=== PATIENT | female | born 1995 | race American Indian/Alaskan Native ===

== ENCOUNTER 2019-04-16 13:21 | Emergency (ER) | payer SELFPAY ==
[2019-04-16 13:27] VITALS: BP 130/76
--- NOTE | 2019-04-16 13:28 | Emergency Department Report ---
Blank Doc - Documentation Documentation: 23-year-old female that presents with sore throat. This initial assessment/diagnostic orders/clinical plan/treatment(s) is/are subject to change based on patient's health status, clinical progression and re- assessment by fellow clinical providers in the ED. Further treatment and workup at subsequent clinical providers discretion. Patient/guardians urged not to elope from the ED as their condition may be serious if not clinically assessed and managed. Initial orders include: 1- Patient sent to [facility] for further evaluation and treatment 2- strep swabs
--- NOTE | 2019-04-16 13:58 | Emergency Department Report ---
HPI - General Chief Complaint: Sore Throat Time Seen by Provider: 04/16/19 13:25 - HPI HPI: 23-year-old female presents to the emergency department with a 2-3 day history of a sore throat. She is able to swallow liquids and solids but has pain with doing so. The symptoms have worsened this morning upon waking and she now feels some discomfort in the ears. No fever. No past medical history. No treatment prior to presentation. No PCP. ED Past Medical Hx - Past Medical History Previous Medical History?: No - Surgical History Past Surgical History?: No - Social History Smoking Status: Never Smoker Substance Use Type: Alcohol - Medications Home Medications: Home Medications Medication Instructions Recorded Confirmed Last Taken Type Amoxicillin [Trimox CAP] 500 mg PO Q8H #21 capsule 04/16/19 Unknown Rx ED Review of Systems ROS: Stated complaint: SORE THROAT/DIFFICULTY HEARING Other details as noted in HPI Comment: All other systems reviewed and negative Constitutional: denies: chills, fever Eyes: denies: eye pain ENT: ear pain, throat pain Respiratory: denies: cough, shortness of breath Gastrointestinal: denies: abdominal pain Neurological: denies: headache Physical Exam - Physical Exam Vital Signs: Vital Signs 04/16/19 13:25 Temperature 99.2 F Pulse Rate 89 Respiratory 19 Rate Blood Pressure 130/76 O2 Sat by Pulse 98 Oximetry Physical Exam: GENERAL: The patient is well-developed well-nourished. HENT: Normocephalic. Atraumatic. Patient has moist mucous membranes. Patient has bilateral tonsillar hypertrophy with erythema and bilateral tonsillar exudates. No drooling or trismus. Normal-appearing bilateral external ear canals and tympanic membranes. EYES: Extraocular motions are intact. NECK: Supple. Trachea is midline. CHEST/LUNGS: Clear to auscultation. There is no respiratory distress noted. HEART/CARDIOVASCULAR: Regular. There is no tachycardia. There is no murmur. ABDOMEN: There is no abdominal distention. SKIN: Skin is warm and dry. NEURO: The patient is awake, alert, and oriented. The patient is cooperative. The patient has no focal neurologic deficits. Normal speech. MUSCULOSKELETAL: There is no tenderness or deformity. There is no evidence of acute injury. ED Course Vital Signs 04/16/19 13:25 Temperature 99.2 F Pulse Rate 89 Respiratory 19 Rate Blood Pressure 130/76 O2 Sat by Pulse 98 Oximetry ED Medical Decision Making - Medical Decision Making The patient presents with a sore throat. Vital signs stable including being afebrile. While the patient was negative on rapid strep test, she has tonsillar hypertrophy, erythema and bilateral exudates. She will be treated with some amoxicillin. Patient will return to the emergency Department with any worsening of her symptoms or any acute distress. - Differential Diagnosis strep pharyngitis, viral pharyngitis, mononucleosis Critical Care Time: No Critical care attestation.: If time is entered above; I have spent that time in minutes in the direct care of this critically ill patient, excluding procedure time. ED Disposition Clinical Impression: Strep pharyngitis Disposition: - TO HOME OR SELFCARE Is pt being admited?: No Condition: Stable Instructions: Strep Throat (ED) Additional Instructions: Please follow-up with a primary care physician in the next few days. Return to the emergency Department with any worsening of your symptoms or any acute distress. Take the antibiotics as prescribed. Make sure to consistently wash her hands with soap and warm water. Do not share any food or drink with anyone. Prescriptions: Amoxicillin [Trimox CAP] 500 mg PO Q8H #21 capsule Referrals: JUAN LUIS ORTIZ MD [Staff Physician] - 2-3 Days [facility] [Outside] - 2-3 Days Time of Disposition: 14:33
== END 2019-04-16 14:46 | disposition home or self-care (01) ==
LOC: ED 13:21
DX: J02.0 Streptococcal pharyngitis (principal)
CPT/HCPCS: 87116; 87430

== ENCOUNTER 2019-05-31 01:33 | Emergency (ER) | payer SELFPAY ==
[2019-05-31 02:00] VITALS: BP 126/72
--- NOTE | 2019-05-31 03:22 | Emergency Department Report ---
ED Allergic Reaction HPI - General Chief complaint: Skin Rash Stated complaint: FACIAL RASH Time Seen by Provider: 05/31/19 02:46 Source: patient, family Mode of arrival: Ambulatory Limitations: No Limitations - History of Present Illness Initial Comments: This is a 23-year-old female presenting to the emergency room reporting that she was at work and she broke out into welts all over her body. And realized that her face was swollen. She denies any pain. Denies any respiratory distress, coughing, closed os throat, wheezing or swelling of tongue or lips. She denies any fever, neck pain or chills. Denies any nausea and vomiting. Pain is 0 out of 10 and last menstrual period was 05/11/2019. Patient says she is actually getting better and rash is clearing up but she is still very itchy. She denies previous incidents and also reports that she works in a [employer]. MD Complaint: hives, facial swelling -: During the night (at work on 05/30/2019) Exposure: unknown Symptoms: rash, itching, facial swelling. denies: lip swelling, difficulty swallowing, difficulty breathing, orolingual swelling, hoarseness, syncopy, dizziness, nausea, vomiting, abdominal pain Severity: moderate Treatment Prior to Arrival: other (none) Previous Allergy History: none - Related Data Previous Rx's Medication Instructions Recorded Last Taken Type Amoxicillin [Trimox CAP] 500 mg PO Q8H #21 capsule 04/16/19 Unknown Rx Prednisone [predniSONE 10 mg 10 mg PO .TAPER 6 Days #1 tab.ds.pk 05/31/19 Unknown Rx (6-Day Pack, 21 Tabs)] diphenhydrAMINE [Benadryl CAP] 25 mg PO Q8HR PRN #12 capsule 05/31/19 Unknown Rx Allergies Allergy/AdvReac Type Severity Reaction Status Date / Time No Known Allergies Allergy Unverified 04/16/19 13:23 ED Review of Systems ROS: Stated complaint: FACIAL RASH Other details as noted in HPI Constitutional: denies: chills, fever ENT: other (bilateral facial swelling). denies: ear pain, throat pain, congestion Respiratory: denies: cough, shortness of breath, SOB with exertion, SOB at rest, stridor, wheezing Cardiovascular: denies: chest pain, palpitations, dyspnea on exertion, edema, syncope, paroxysmal nocturnal dyspnea Gastrointestinal: denies: abdominal pain, nausea, vomiting Genitourinary: denies: abnormal menses Musculoskeletal: denies: back pain, joint swelling, arthralgia, myalgia Skin: rash, pruritus Neurological: denies: headache, numbness, paresthesias ED Past Medical Hx - Past Medical History Previous Medical History?: No - Surgical History Past Surgical History?: No - Family History Family history: hypertension - Social History Smoking Status: Light Tobacco Smoker Substance Use Type: None - Medications Home Medications: Home Medications Medication Instructions Recorded Confirmed Last Taken Type Amoxicillin [Trimox CAP] 500 mg PO Q8H #21 capsule 04/16/19 Unknown Rx Prednisone [predniSONE 10 mg 10 mg PO .TAPER 6 Days #1 tab.ds.pk 05/31/19 Unknown Rx (6-Day Pack, 21 Tabs)] diphenhydrAMINE [Benadryl CAP] 25 mg PO Q8HR PRN #12 capsule 05/31/19 Unknown Rx ED Physical Exam - General Limitations: No Limitations General appearance: alert, in no apparent distress - Head Head exam: Present: atraumatic, normocephalic - Eye Eye exam: Present: normal appearance, PERRL, EOMI. Absent: conjunctival injection, nystagmus, periorbital swelling, periorbital tenderness Pupils: Present: normal accommodation - ENT ENT exam: Present: normal exam, normal orophraynx, mucous membranes moist, TM's normal bilaterally, normal external ear exam, other (no facial swelling noted but scattered rash on both sides of face.) - Expanded ENT Exam Expanded Mouth exam: Present: normal external inspection, tongue normal. Absent: drooling, trismus, muffled voice, tongue elevation, laceration Teeth exam: Present: normal inspection Throat exam: Positive: normal inspection - Neck Neck exam: Present: normal inspection, full ROM. Absent: tenderness, lymphadenopathy - Expanded Neck Exam Expanded Neck exam: Absent: tenderness, midline deformity, anterior neck swelling, tracheal deviation - Respiratory Respiratory exam: Present: normal lung sounds bilaterally. Absent: respiratory distress, chest wall tenderness - Cardiovascular Cardiovascular Exam: Present: regular rate, normal rhythm, normal heart sounds - GI/Abdominal GI/Abdominal exam: Present: soft, normal bowel sounds. Absent: distended, tenderness - Extremities Exam Extremities exam: Present: normal inspection, full ROM, normal capillary refill, other (No cce. + 2 pulses in all extremities, no neurovascular compromise). Absent: tenderness, pedal edema, joint swelling - Back Exam Back exam: Present: normal inspection, full ROM, rash noted (urticarial type rash). Absent: tenderness, CVA tenderness (L), muscle spasm, paraspinal tenderness, vertebral tenderness - Neurological Exam Neurological exam: Present: alert, normal gait - Psychiatric Psychiatric exam: Present: normal affect, normal mood - Skin Skin exam: Present: warm, dry, intact, rash, urticaria (sparsely scattered and generalized.) ED Course Vital Signs 05/31/19 01:44 Temperature 98.4 F Pulse Rate 86 Respiratory 14 Rate Blood Pressure 126/72 O2 Sat by Pulse 98 Oximetry - Reevaluation(s) Reevaluation #1: 05/31/19 03:57 Patient ED Medical Decision Making - Medical Decision Making This is a 23-year-old female came from work report that she has generalized rashes dictation. She was given Benadryl 50 mg IM and Decadron 10 mg IM in emergency room and she is stable. Vital signs stable she is afebrile and pain is 0 out of 10. Patient with hives without any anaphylaxis. I discussed with her that if this returned and she is having any difficulty breathing, cough, wheezing, difficulty swallowing, drooling, tongue or lip or facial swelling to return to emergency room [facility] otherwise follow-up with her primary care in 2 days and she voiced understanding. Patient discharged home with prescription for Benadryl and prednisone Dosepak. - Differential Diagnosis anaphylaxis versus urticaria Critical care attestation.: If time is entered above; I have spent that time in minutes in the direct care of this critically ill patient, excluding procedure time. ED Disposition Clinical Impression: Hives, Pruritus Disposition: [id number] TO HOME OR SELFCARE Is pt being admited?: No Does the pt Need Aspirin: No Condition: Stable Instructions: Urticaria (ED), Itchy Skin (ED) Additional Instructions: These follow-up with your primary care physician in 2 days or if you condition worsens return to the emergency room. Take medication as prescribed do not take Benadryl while driving or operating heavy machinery as this will cause drowsiness Prescriptions: diphenhydrAMINE [Benadryl CAP] 25 mg PO Q8HR PRN #12 capsule PRN Reason: allergic reaction Prednisone [predniSONE 10 mg (6-Day Pack, 21 Tabs)] 10 mg PO .TAPER 6 Days #1 tab.ds.pk Referrals: PRIMARY CARE,MD [Primary Care Provider] - 3-5 Days Forms: Accompanied Note, Work/School Release Form(ED)
[2019-05-31] MEDS ORDERED: dexAMETHasone 4 MG/ML VIAL IM STA (03:25)
[2019-05-31] MEDS ORDERED: diphenhydrAMINE 50 MG/ML VIAL IM ONE (03:25)
== END 2019-05-31 04:05 | disposition home or self-care (01) ==
LOC: ED 01:33
DX: L50.9 Urticaria, unspecified (principal); L29.9 Pruritus, unspecified; F17.200 Nicotine dependence, unspecified, uncomplicated
CPT/HCPCS: 96372; 99282; J1100; J1200